=== PATIENT | male | born 1995 | race Caucasian/White ===

== ENCOUNTER 2016-04-08 12:48 | Emergency (ER) | payer OTHER ==
[2016-04-08 13:18] VITALS: BP 116/68; PULSE 85; RESP 16; TEMP 98.2; O2SAT 95
--- NOTE | 2016-04-08 14:17 | UCPHY ---
H & P Patient Type: Established Smoking Status: Heavy smoker Time Seen by Provider: 04/08/16 14:16 HPI/ROS: CHIEF COMPLAINT: Sores in mouth and on penis. HISTORY OF PRESENT ILLNESS: 5 days ago he had unprotected intercourse and oral sex with a new sexual partner. He has not checked with this individual as to whether they have any symptoms before or prior or concurrently. Beginning 3 days ago he started with a sore throat, white patches on the tonsil , anterior adenopathy, with some sense of fever. He was seen at a local clinic and found to have negative strep and influenza testing. In the interim he has developed some sores on his tongue as of yesterday. that he has never had before which she characterizes as canker sores. There have been oral sores since yesterday and sores on the tip of his penis since yesterday as well as 1 on the shaft of the penis, dorsal since earlier today he is not known to have any oral herpes labialis or genitalis. There were no lesions on his lips. Just the ones on the tip and the side of the time He has associated sore throat, tonsillar swelling, and fever. He has a history of tonsillitis but has never had these symptoms before. He denies change in urine color. He also notes he has had some small discrete fleshy areas in the pubic area that had been there for months. He has had prior evaluation and was told that these would should just not really bother him. REVIEW OF SYSTEMS: Constitutional: No fever, no chills. Eyes: No discharge. ENT: As above. Cardiovascular: No chest pain, no palpitations. Respiratory: No cough, no shortness of breath, no wheezing. Gastrointestinal: No nausea vomiting or diarrhea. No abdominal pain. Genitourinary: No hematuria or frequency. Musculoskeletal: No back pain. Skin: No rashes. Neurological: No headache. 10 point ROS otherwise negative (Tristen Gaxiola) Past Medical/Surgical History: Tonsillitis. (Tristen Gaxiola) Social History: Smoker. (Tristen Gaxiola) Physical Exam: General Appearance: Alert, no distress. Afebrile. Normal phonation. No respiratory distress. Anxious Eyes: Pupils equal and round no pallor or injection. No icterus ENT, Mouth: Scattered canker sores on side and tip of tongue. Mucous membranes moist. Pharynx erythematous and with exudate. Mild tonsillar swelling. TM Clear. Neck: Moderate anterior adenopathy. No posterior adenopathy. Supple. No JVD. Trachea in midline. Respiratory: There are no retractions, lungs are clear to auscultation. Cardiovascular: Regular rate and rhythm, without murmur. Abdomen: Soft and nontender, no masses, bowel sounds normal. No inguinal adenopathy Genitalia: Normal male hair pattern. He is status post circumcision. There are no scrotal masses or soft tissue swelling or tenderness. On the tip of the penis there are 3 discrete crusty spots compatible with acute herpes genitalis and 1 on the dorsum of the penis. There is no overt drainage or erythema or lymphangitis or cellulitis. There is no discharge to the penis. Further on the mons pubis there are some 6-7 discrete fleshy raised waxy looking beads approximately 3-4 mm, compatible with musculosum contagiosum. Neurological: Ox3. No motor weakness. Sensation intact. Gait nl. Skin: Warm and dry, no rashes. Musculoskeletal: No joint swelling. Extremities: No edema. Homans sign negative. No cords. Psychiatric: Patient is oriented X 3, there is no agitation (Tristen Gaxiola) Constitutional: Initial Vital Signs Temperature (C) 36.8 C 04/08/16 13:13 Heart Rate 85 04/08/16 13:13 Respiratory Rate 16 04/08/16 13:13 Blood Pressure 116/68 04/08/16 13:13 O2 Sat (%) 95 04/08/16 13:13 O2 Delivery Mode Room Air Allergies/Adverse Reactions: No Known Allergies Allergy (Verified 04/08/16 13:17) Home Medications: Medication Instructions Recorded Acyclovir 400 mg PO TID #30 tablet 04/08/16 Cephalexin [Keflex (*)] 500 mg PO TID #30 cap 04/08/16 oxyCODONE HCL/ACETAMINOPHEN 1 - 2 each PO Q6 PRN #20 tablet 04/08/16 [Percocet 5-325 mg Tablet] Hydrocodone/APAP 5/325 [[place] 1 - 2 tab PO Q4PRN PRN #20 tab 04/09/16 5/325 (*)] Medical Decision Making ED Course/Re-evaluation: This patient called on Sunday and did not like the way he felt on Percocet. I had him bring in his Percocet bottle in exchange for hydrocodone/Tylenol script (Kemar Blair) He is having quite a bit of throat pain and ask for something for pain. This made sense. This stigmata in his throat may well be herpes as well. Certainly the genital lesions are compatible with herpes. However he is only having adenopathy in the neck to suggest this might be the source of things rather than an acute primary herpes genitalis. As I have explained to him the uncertainty of the clinical correlation and pace of things, vis-a-vis he might well have had a secondary case this time, he is anxious to have HSV type being and surveillance to ascertain IgM verses IgM status as well as HSV 1 versus 2. Nonetheless as he has some muscullosum contagiosum so some on his suprapubic area he needs to have urologic referral as he is at risk for stress images to others. Likewise with his herpes genitalis. He has been admonished at length regarding use of condoms and self disclosure and and complete disclosure with transparent see to his current as well as future sexual partners. He does use condoms (Tristen Gaxiola) Differential Diagnosis: Diagnostic considerations include, but are not limited to, the following: Herpes simplex, Coxsackie, genital herpes, STDs, musculoskeletal contagiosum, Chlamydia, gonorrhea, syphilis exposure. 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 [phone] Referrals: NONE *PRIMARY CARE P,. [Primary Care Provider] - As per Instructions Prescriptions: Acyclovir 400 mg PO TID #30 tablet Cephalexin [Keflex (*)] 500 mg PO TID #30 cap Hydrocodone/APAP 5/325 [[place] 5/325 (*)] 1 - 2 tab PO Q4PRN PRN #20 tab PRN Reason: Pain oxyCODONE HCL/ACETAMINOPHEN [Percocet 5-325 mg Tablet] 1 - 2 each PO Q6 PRN #20 tablet PRN Reason: moderate pain - PQRS PQRS Measurement: Not applicable. (Tristen Gaxiola) Report Scribed for: Tristen Gaxiola Report Scribed by: Beka Toledo Date of Report: 04/08/16 Time of Report: 14:17 Physician Review and Approval Statement: 04/08/16 14:17 Portions of this note were transcribed by a medical care evaluation specialist. I personally performed a history, physical exam, medical decision making, and confirmed accuracy of information the transcribed note. (Tristen Gaxiola)
[2016-04-10 14:20] LABS: CHLAMYDIA AMPLIFICATION GENPRB NEGATIVE (NEGATIVE)
[2016-04-11 13:16] LABS: HSV1 IGG ANTIBODY Negative (Negative); HSV2 IGG ANTIBODY Negative (Negative)
[2016-04-12 08:11] LABS: HSV 1/2 IGM IFA Negative (Negative)
== END 2016-04-08 15:40 | disposition home or self-care (01) ==
LOC: CED 12:48
DX: K13.79 Other lesions of oral mucosa (principal); N48.5 Ulcer of penis; J02.9 Acute pharyngitis, unspecified
CPT/HCPCS: 86694-90; 99214-PO; G0463-PO

== ENCOUNTER 2016-04-25 17:20 | Emergency (ER) | payer OTHER ==
[2016-04-25 17:24] VITALS: TEMP 97.7
--- NOTE | 2016-04-25 17:27 | EDPHY ---
H & P Time Seen by Provider: 04/25/16 17:24 HPI/ROS: CHIEF COMPLAINT: Left abdominal pain HISTORY OF PRESENT ILLNESS: Patient tells me has a history of kidney stones. Previous history in [facility] reviewed by myself see past medical history for details. Patient developed left testicular pain this morning and then left lower quadrant abdominal pain 45 minutes ago. He says the pain is severe and not better worse with anything. It radiates into his groin. Associated with some nausea but no vomiting or diarrhea. No trauma. No urinary symptoms. REVIEW OF SYSTEMS: Eye: no change in vision ENT: no sore throat Cardiac: no chest pain or syncope Pulmonary: no cough or SOB Abdomen: HPI Musculoskeletal: no back pain Skin: no rash Neuro: no headache Constitutional: no fever : no urinary symptoms, no hematuria. A comprehensive 10 point review of systems is otherwise negative aside from elements mentioned in the history of present illness. PAST MEDICAL HISTORY: Previous visits in 2014 dated 08/07 and 11/03 personally reviewed by myself. Patient had testicular ultrasound, renal ultrasound, noncontrast CT which did show stones in the kidneys but no evidence of hydronephrosis or ureteral colic. Social history: Tobacco smoker General Appearance: Alert and conversant, cooperative. Eyes: No scleral icterus. ENT, Mouth: Normal mucous membranes. Respiratory: Normal respiratory effort, breath sounds equal, lungs are clear to auscultation. Cardiovascular: Regular rate and rhythm. Gastrointestinal: Abdomen is soft and non tender. Normal testicles with vertical lie, no swelling or tenderness, no skin discoloration. Not tender to palpation. Neurological: Alert and oriented x3. Normally conversant. Face symmetric, normal movement and sensation in all extremities. Skin: Warm and dry, no rashes. Musculoskeletal: No peripheral edema and no joint swelling. Psychiatric: Moderately anxious. Emergency Department course/MDM: 15 mg IV Toradol and 4 mg IV Zofran. Urinalysis and retroperitoneal ultrasound. 183: Ultrasound reviewed with [place] shows left hydronephrosis, patient examined at this time and is more comfortable. 1854: No pain now. Plan to discharge if urinalysis does not show infection. Testicular symptoms most likely due to renal colic. 1924: Urine dip positive for blood but not for infection. Referred to [facility] on discharge. Smoking Status: Heavy smoker Constitutional: Initial Vital Signs Temperature (C) 36.5 C 04/25/16 17:20 Heart Rate 94 04/25/16 17:20 Respiratory Rate 20 04/25/16 17:20 Blood Pressure 121/80 H 04/25/16 17:20 O2 Sat (%) 100 04/25/16 17:20 O2 Delivery Mode Room Air Allergies/Adverse Reactions: No Known Allergies Allergy (Verified 04/08/16 13:17) Home Medications: Medication Instructions Recorded Acyclovir 400 mg PO TID #30 tablet 04/08/16 Cephalexin [Keflex (*)] 500 mg PO TID #30 cap 04/08/16 oxyCODONE HCL/ACETAMINOPHEN 1 - 2 each PO Q6 PRN #20 tablet 04/08/16 [Percocet 5-325 mg Tablet] Hydrocodone/APAP 5/325 [[place] 1 - 2 tab PO Q4PRN PRN #20 tab 04/09/16 5/325 (*)] Hydrocodone/APAP 5/325 [[place] 1 - 2 tab PO Q4-6PRN PRN #11 tab 04/25/16 5/325] Medical Decision Making Differential Diagnosis: Differential considered including but not limited to diverticulitis, testicular torsion, UTI, renal colic. - Data Points Laboratory Results: 04/25/16 17:32 POC Hgb 16.0 gm/dL gm/dL (14.5-17.3) POC Hct 47 % % (42.8-50.6) POC Sodium 145 mEq/L H mEq/L (134-144) POC Potassium 3.5 mEq/L mEq/L (3.3-5.0) POC Chloride 103 mEq/L mEq/L (96-108) POC BUN 10 mg/dL mg/dL (7-23) POC Creatinine 0.9 mg/dL mg/dL (0.8-1.5) POC Glucose 68 mg/dL L mg/dL (70-100) Medications Given: Discontinued Medications Acetaminophen (Tylenol) 650 mg PO EDNOW ONE Stop: 04/25/16 18:31 Last Admin: 04/25/16 18:40 Dose: 650 mg Sodium Chloride (Ns) 1,000 mls @ 0 mls/hr IV ONCE ONE PRN Reason: Wide Open Stop: 04/25/16 17:38 Last Admin: 04/25/16 17:51 Dose: 1,000 mls Ketorolac Tromethamine (Toradol) 15 mg IVP EDNOW ONE Stop: 04/25/16 17:38 Last Admin: 04/25/16 17:55 Dose: 15 mg Ketorolac Tromethamine (Toradol) 15 mg IVP EDNOW ONE Stop: 04/25/16 18:31 Last Admin: 04/25/16 18:40 Dose: 15 mg Ondansetron HCl (Zofran) 4 mg IVP EDNOW ONE Stop: 04/25/16 17:38 Last Admin: 04/25/16 17:56 Dose: 4 mg Point of Care Test Results: 04/25/16 17:32 POC Sodium 145 H POC Potassium 3.5 POC Chloride 103 POC BUN 10 POC Creatinine 0.9 POC Glucose 68 L Departure - Departure Disposition: Home, Routine, Self-Care Clinical Impression: Renal colic on left side Condition: Good Instructions: Renal Colic (ED) Additional Instructions: Oral ibuprofen 600 mg every 6 hours as needed for the next 5 days for pain. Vicodin for breakthrough pain. Strain urine and bring any stone to your primary care physician for analysis. Referrals: DOMONIQUE SAUCEDO [Other] - As per Instructions Abad Gutierrez MD [Medical Doctor] - As per Instructions (urology referral) Prescriptions: Hydrocodone/APAP 5/325 [[place] 5/325] 1 - 2 tab PO Q4-6PRN PRN #11 tab PRN Reason: For Pain
[2016-04-25] MEDS ORDERED: NS 1,000 ML IV ONE (17:37)
[2016-04-25] MEDS ORDERED: KETOROLAC 30 MG/1 ML SDV IVP ONE ×2 (17:37→18:30)
[2016-04-25] MEDS ORDERED: ONDANSETRON 4 MG/2 ML VIAL IVP ONE (17:37)
[2016-04-25] MEDS ORDERED: ACETAMINOPHEN 325 MG TAB PO ONE (18:30)
[2016-04-25 19:26] VITALS: BP 118/52; PULSE 68; RESP 18; O2SAT 97
== END 2016-04-25 19:26 | disposition home or self-care (01) ==
DX: N23 Unspecified renal colic (principal); F17.200 Nicotine dependence, unspecified, uncomplicated
CPT/HCPCS: 82947-QW; 96374; J1885; J2405

== ENCOUNTER 2016-05-05 18:40 | Emergency (ER) | payer OTHER ==
[2016-05-05 19:06] VITALS: TEMP 98.1
[2016-05-05] MEDS ORDERED: HYDROCOD/APAP 5/325 PREPACK#6 BTL TAKEHOME ONE (20:02)
--- NOTE | 2016-05-05 20:05 | EDPHY ---
H & P Time Seen by Provider: 05/05/16 19:29 HPI/ROS: CHIEF COMPLAINT: Left flank pain HISTORY OF PRESENT ILLNESS: 20-year-old male with a history of kidney stones presents with left flank pain. He was seen in this ED on 04/25/2016 and diagnosed with left renal colic. Renal ultrasound revealed mild left hydronephrosis. He was discharged home on Vicodin. He was feeling better until just prior to arrival when he developed moderate waxing and waning left flank pain. The pain is now almost completely resolved. No vomiting, fever or dysuria. REVIEW OF SYSTEMS: Constitutional: No fever, no chills Eyes: No visual changes ENT: No sore throat Respiratory: No cough, no shortness of breath Cardiac: No chest pain Gastrointestinal: No nausea, no vomiting, no abdominal pain Genitourinary: No hematuria, no dysuria Musculoskeletal: No leg pain or swelling Skin: No rash Neurological: No headache, no weakness Psychiatric: No depression Past Medical/Surgical History: Kidney stones Social History: No PCP Smoking Status: Heavy smoker Physical Exam: General Appearance: Alert, does not appear in pain Eyes: Pupils equal and round, no conjunctival pallor ENT, Mouth: Mucous membranes moist Neck: Normal inspection Respiratory: normal respiratory rate Cardiovascular: Regular rate and rhythm Gastrointestinal: Abdomen is soft and nontender Neurological: A&O, nonfocal, normal gait Skin: Warm and dry Extremities: normal inspection Psychiatric: Mood and affect normal Constitutional: Initial Vital Signs Temperature (C) 36.7 C 05/05/16 19:05 Heart Rate 84 05/05/16 19:05 Respiratory Rate 20 05/05/16 19:05 Blood Pressure 95/77 L 05/05/16 19:05 O2 Sat (%) 98 05/05/16 19:05 O2 Delivery Mode Room Air Allergies/Adverse Reactions: No Known Allergies Allergy (Verified 05/05/16 19:04) Home Medications: Medication Instructions Recorded Hydrocodone/APAP 5/325 [[place] 1 - 2 tab PO Q4H PRN #10 tab 05/05/16 5/325] Medical Decision Making ED Course/Re-evaluation: Dip urinalysis positive for blood. Pt previously referred to Urology, states will f/u as suggested. Given multiple prior kidney stones, and feels better now , I decided on no repeat imaging. Abd remains soft/NT. Differential Diagnosis: Differential diagnosis includes though it is not limited to appendicitis, cholecystitis, diverticulitis, pyelonephritis, bowel perforation, small bowel obstruction. - Data Points Medications Given: Discontinued Medications Hydrocodone Bitart/Acetaminophen ([place] 5/325mg Prepack#6) 1 btl TAKEHOME EDNOW ONE Stop: 05/05/16 20:03 Last Admin: 05/05/16 20:24 Dose: 1 btl Departure - Departure Disposition: Home, Routine, Self-Care Clinical Impression: Renal colic on left side Condition: Good Instructions: Hydrocodone/Acetaminophen (By mouth), Renal Colic (ED) Additional Instructions: Ibuprofen 600 mg 3 times daily while the pain persists. Take Vicodin 1 tablet orally every 4 hours as needed for pain. Referrals: Majo Brewster MD [Primary Care Provider] - As per Instructions Tanvir Mancini MD [Medical Doctor] - As per Instructions (Call for an appointment.) Prescriptions: Hydrocodone/APAP 5/325 [[place] 5/325] 1 - 2 tab PO Q4H PRN #10 tab PRN Reason: Pain, Moderate
[2016-05-05 20:26] VITALS: BP 136/70; PULSE 88; RESP 18; O2SAT 96
== END 2016-05-05 20:15 | disposition home or self-care (01) ==
DX: N23 Unspecified renal colic (principal); F17.200 Nicotine dependence, unspecified, uncomplicated

== ENCOUNTER → 2016-05-13 | Outpatient (CLI) | payer OTHER | LOC: FIMAGING 15:06 | PROVIDERS: ATTEND Family Medicine | DX: N20.1 Calculus of ureter (principal); N13.39 Other hydronephrosis; K80.20 Calculus of gallbladder without cholecystitis without obstruction ==

== ENCOUNTER → 2016-05-13 | Outpatient (CLI) | payer OTHER | LOC: BMCIMAGING 13:28 | PROVIDERS: ATTEND Family Medicine | DX: M61.48 Other calcification of muscle, other site (principal) ==

== ENCOUNTER 2016-05-14 04:28 | Emergency (ER) | payer OTHER ==
[2016-05-14] MEDS ORDERED: ONDANSETRON 4 MG/2 ML VIAL ONE (05:07)
[2016-05-14] MEDS: NS 1,000 ML IV ONE (05:16)
[2016-05-14] MEDS: ONDANSETRON 4 MG/2 ML VIAL IVP ONE (05:16)
[2016-05-14 05:31] LABS: % IMMATURE GRANULYOCYTES 0.3 % (0.0-1.1); ABSOLUTE IMMATURE GRANULOCYTES 0.04 10^3/uL (0.00-0.10); ADD DIFF? NO; ADD MORPH? NO; ADD SCAN? NO; ATYPICAL LYMPHOCYTE FLAG 10 (0-99); FRAGMENT RBC FLAG 0 (0-99); HEMATOCRIT 41.3 % (40.0-51.0); HEMOGLOBIN 14.4 g/dL (13.7-17.5); LEFT SHIFT FLG 0 (0-99); LIPEMIA HEMOLYSIS FLAG 90 (0-99); MEAN CELL HEMOGLOBIN 31.5 pg (27.9-34.1); MEAN CELL HEMOGLOBIN CONCENTR. 34.9 g/dL (32.4-36.7); MEAN CELL VOLUME 90.4 fL (81.5-99.8); MEAN PLATELET VOLUME 9.8 fL (8.7-11.7); PLATELET CLUMPS FLAG 10 (0-99); PLATELET COUNT 198 10^3/uL (150-400); RED BLOOD CELL COUNT 4.57 10^6/uL (4.40-6.38); RED CELL DISTRIBUTION WIDTH 12.3 % (11.5-15.2)
[2016-05-14] MEDS ORDERED: NS 50 ML BAG IV ONE (05:31)
[2016-05-14] MEDS: FAMOTIDINE 20 MG/2 ML SDV IVP ONE (05:35)
[2016-05-14] MEDS ORDERED: HYDROCODONE/APAP 5/325 TAB ONE (05:38)
[2016-05-14 05:40] LABS: ALANINE AMINOTRANSFERASE 21 IU/L (21-72); ALBUMIN 3.8 g/dL (3.5-5.0); ALKALINE PHOSPHATASE 57 IU/L (38-126); ANION GAP 10 mEq/L (8-16); ASPARTATE AMINOTRANSFERASE 27 IU/L (17-59); BILIRUBIN,TOTAL 1.3 mg/dL (0.1-1.4); CARBON DIOXIDE 25 mEq/l (22-31); CHLORIDE 108 mEq/L (97-110); CREATININE 1.4 mg/dL (0.7-1.3); GLOMERULAR FILTRATION RATE > 60; GLUCOSE 91 mg/dL (70-100); POTASSIUM 3.6 mEq/L (3.5-5.2); SODIUM 143 mEq/L (134-144)
[2016-05-14] MEDS: HYDROCODONE/APAP 5/325 TAB PO ONE (05:41)
--- NOTE | 2016-05-14 05:41 | EDPHY ---
H & P Stated Complaint: c/o n/v x 20 mins, pt says blood in vomit Time Seen by Provider: 05/14/16 05:01 HPI/ROS: HPI The patient presents with nausea, vomiting which awoke him from sleep about 1 hour prior to presentation. He noticed that his vomiting was somewhat dark in coloration and continued to get progressively dark. There is no bright red blood. He had several episodes and then woke his friend to bring him into the emergency room. He does have associated mild to moderate epigastric pain which is achy in nature. He says he has a history of GERD. He is currently being treated for a kidney stone and had a CT scan performed yesterday which showed a left-sided stone in the UVJ with hydronephrosis. He has not had much vomiting until today. He has an appointment with a urologist in 3 days. He is not taking any NSAIDs and denies alcohol use.. REVIEW OF SYSTEMS Constitutional: No fever, no chills. Eyes: No discharge. ENT: No sore throat. Cardiovascular: No chest pain, no palpitations. Respiratory: No cough, no shortness of breath. Gastrointestinal: See HPI Genitourinary: No hematuria. Musculoskeletal: No back pain. Skin: No rashes. Neurological: No headache. PMHx: Left-sided kidney stone Soc Hx: Housed, denies alcohol use PHYSICAL General Appearance: Alert, no distress Eyes: Pupils equal and round no pallor or injection ENT, Mouth: Mucous membranes moist Respiratory: There are no retractions, lungs are clear to auscultation Cardiovascular: Regular rate and rhythm Gastrointestinal: Abdomen is soft with mild epigastric tenderness Neurological: A&O, moves all extremities Skin: Warm and dry, no rashes Musculoskeletal: Neck is supple non tender Extremities: symmetrical, full range of motion Psychiatric: Patient is oriented X 3, there is no agitation Source: Patient - Personal History Tetanus Vaccine Date: within 10 years - Medical/Surgical History Hx Asthma: No Hx Chronic Respiratory Disease: No Hx Diabetes: No Hx Cardiac Disease: No Hx Renal Disease: No Hx Cirrhosis: No Hx Alcoholism: No Hx HIV/AIDS: No Hx Splenectomy or Spleen Trauma: No Other PMH: Kidney stones, pneumonia age 2, anxiety, varicose vein surg - Social History Smoking Status: Heavy smoker Constitutional: Initial Vital Signs Temperature (C) 36.9 C 05/14/16 04:31 Heart Rate 71 05/14/16 04:31 Respiratory Rate 16 05/14/16 04:31 Blood Pressure 109/72 05/14/16 04:31 O2 Sat (%) 100 05/14/16 04:31 O2 Delivery Mode Room Air Allergies/Adverse Reactions: No Known Allergies Allergy (Verified 05/14/16 04:33) Home Medications: Medication Instructions Recorded Hydrocodone/APAP 5/325 [[place] 1 - 2 tab PO Q4H PRN #10 tab 05/05/16 5/325] Medical Decision Making Differential Diagnosis: This is a 20-year-old male who is currently being treated for nephrolithiasis, had a CT scan done today, who presents with vomiting which is dark in color, concerning for bleeding associated epigastric abdominal pain. He denies any dark or bloody stools. On exam, he has normal vital signs, he is tender in his epigastrium. Differential diagnosis includes Taylor-Figueroa tear, stress gastritis, NSAID induced gastritis, less likely ulcer or esophageal varices. In the emergency room, basic labs were checked and his white blood cell count was elevated, I attribute this to his vomiting. His creatinine was slightly elevated at 1.4 though I do not have a recent for comparison this is likely slightly elevated related to his kidney stone. He was given IV fluid hydration for his vomiting as well as Zofran and Pepcid. He had no ongoing vomiting here in the emergency room and was observed for several hours. He felt better and was discharged home. I feel he likely has a stress gastritis and I have explained this to him. He will be discharged with follow-up with Urology for his kidney stone in the next few days. - Data Points Laboratory Results: Laboratory Results 05/14/16 05:05 05/14/16 05:05 05/14/16 05/14/16 05:05 05:05 WBC 11.82 10^3/uL H 10^3/uL (3.80-9.50) RBC 4.57 10^6/uL 10^6/uL (4.40-6.38) Hgb 14.4 g/dL g/dL (13.7-17.5) Hct 41.3 % % (40.0-51.0) MCV 90.4 fL fL (81.5-99.8) MCH 31.5 pg pg (27.9-34.1) MCHC 34.9 g/dL g/dL (32.4-36.7) RDW 12.3 % % (11.5-15.2) Plt Count 198 10^3/uL 10^3/uL (150-400) MPV 9.8 fL fL (8.7-11.7) Neut % (Auto) 67.6 % % (39.3-74.2) Lymph % (Auto) 21.8 % % (15.0-45.0) Kleberg % (Auto) 9.1 % % (4.5-13.0) Eos % (Auto) 0.8 % % (0.6-7.6) Baso % (Auto) 0.4 % % (0.3-1.7) Nucleat RBC Rel Count 0.0 % % (0.0-0.2) Absolute Neuts (auto) 7.99 10^3/uL H 10^3/uL (1.70-6.50) Absolute Lymphs (auto) 2.58 10^3/uL 10^3/uL (1.00-3.00) Absolute Monos (auto) 1.07 10^3/uL H 10^3/uL (0.30-0.80) Absolute Eos (auto) 0.09 10^3/uL 10^3/uL (0.03-0.40) Absolute Basos (auto) 0.05 10^3/uL 10^3/uL (0.02-0.10) Absolute Nucleated RBC 0.00 10^3/uL 10^3/uL (0-0.01) Immature Gran % 0.3 % % (0.0-1.1) Immature Gran # 0.04 10^3/uL 10^3/uL (0.00-0.10) Sodium 143 mEq/L mEq/L (134-144) Potassium 3.6 mEq/L mEq/L (3.5-5.2) Chloride 108 mEq/L mEq/L (97-110) Carbon Dioxide 25 mEq/l mEq/l (22-31) Anion Gap 10 mEq/L mEq/L (8-16) BUN 14 mg/dL mg/dL (7-23) Creatinine 1.4 mg/dL H mg/dL (0.7-1.3) Estimated GFR > 60 Glucose 91 mg/dL mg/dL (70-100) Calcium 9.0 mg/dL mg/dL (8.5-10.4) Total Bilirubin 1.3 mg/dL mg/dL (0.1-1.4) AST 27 IU/L IU/L (17-59) ALT 21 IU/L IU/L (21-72) Alkaline Phosphatase 57 IU/L IU/L (38-126) Total Protein 6.0 g/dL L g/dL (6.3-8.2) Albumin 3.8 g/dL g/dL (3.5-5.0) Medications Given: Discontinued Medications Hydrocodone Bitart/Acetaminophen ([place] 5/325) 1 tab PO EDNOW ONE Stop: 05/14/16 05:42 Last Admin: 05/14/16 05:41 Dose: 1 tab Famotidine (Pepcid) 20 mg IVP EDNOW ONE Stop: 05/14/16 05:27 Last Admin: 05/14/16 05:35 Dose: 20 mg Sodium Chloride (Ns) 1,000 mls @ 0 mls/hr IV ONCE ONE PRN Reason: Wide Open Stop: 05/14/16 05:17 Last Admin: 05/14/16 05:16 Dose: 1,000 mls Ondansetron HCl (Zofran) 4 mg IVP EDNOW ONE Stop: 05/14/16 05:17 Last Admin: 05/14/16 05:16 Dose: 4 mg Departure - Departure Disposition: Home, Routine, Self-Care Clinical Impression: Kidney stone on left side Hematemesis Qualifiers: Nausea presence: with nausea Qualified Code(s): K92.0 - Hematemesis; R11.0 - Nausea Condition: Good Instructions: Hematemesis (ED) Additional Instructions: You can take Pepcid or Tums if you continue to have any stomach pain. You can take the anti nausea medication if you have any vomiting. He should return to the emergency room if your worse in any way. Referrals: Majo Brewster MD [Primary Care Provider] - As per Instructions
[2016-05-14 06:44] VITALS: BP 120/72; PULSE 81; RESP 20; TEMP 98.2; O2SAT 93
== END 2016-05-14 06:45 | disposition home or self-care (01) ==
DX: N20.0 Calculus of kidney (principal); K92.0 Hematemesis; F17.200 Nicotine dependence, unspecified, uncomplicated
CPT/HCPCS: 96374; J2405

== ENCOUNTER → 2016-07-08 | Outpatient (CLI) | payer OTHER | LOC: BMCIMAGING 16:54 | PROVIDERS: ATTEND Family Medicine | DX: M79.672 Pain in left foot (principal) ==

== ENCOUNTER 2016-08-17 20:22 | Emergency (ER) | payer OTHER ==
[2016-08-17 20:29] VITALS: RESP 18; TEMP 97.2; O2SAT 98
--- NOTE | 2016-08-17 22:16 | EDPHY ---
H & P Stated Complaint: pt wants script for anxiety meds Time Seen by Provider: 08/17/16 21:59 HPI/ROS: Chief Complaint: Anxiety HPI: 20-year-old male presenting complaining of feeling anxious. Patient has a history of PTSD. He states that he has never been treated for this formally. He was seen at urgent care for 2 months ago and given Xanax without help. He has been department in 2 days but has not been able to sleep for the last 2 nights and feels he needs something to help with this. Denies any suicidal ideation. No homicidal ideation. Is feeling mildly paranoid but has not have any specific thoughts regarding anybody in particular out to get him. He has not have any ideas of specific pressure confusion. He is not hallucinating. He denies drinking alcohol or using any other recreational drugs. He has been seen at [facility] but did not return because they did not call him back. He is requesting something to help him relax. ROS: 10 point Review of Systems is negative except as noted in the HPI. PMH: Anxiety and depression Medications: None Allergies: No known drug allergies Social History: Positive smoking, rare alcohol, no recreational drug use Family History: non-contributory Physical Exam: Gen: Awake, Alert, No Distress HEENT: Nose: no rhinorrhea Eyes: PERRLA, EOMI Mouth: Moist mucosa Neck: Supple, no JVD Chest: nontender, lungs clear to auscultation Heart: S1, S2 normal, no murmur Abd: Soft, non-tender, no guarding Back: no CVA tenderness, no midline tenderness Ext: no edema, non-tender Skin: no rash Neuro: CN II-XII intact, Sensation grossly intact, Strength 5/5 in bilateral upper and lower extremities - Personal History Current Tetanus/Diphtheria Vaccine: No Current Tetanus Diphtheria and Acellular Pertussis (TDAP): No Tetanus Vaccine Date: within 10 years - Medical/Surgical History Hx Asthma: No Hx Chronic Respiratory Disease: No Hx Diabetes: No Hx Cardiac Disease: No Hx Renal Disease: No Hx Cirrhosis: No Hx Alcoholism: No Hx HIV/AIDS: No Hx Splenectomy or Spleen Trauma: No Other PMH: Kidney stones, pneumonia age 2, anxiety, varicose vein surg - Social History Smoking Status: Heavy smoker Constitutional: Initial Vital Signs Temperature (C) 36.2 C 08/17/16 20:25 Heart Rate 80 08/17/16 20:25 Respiratory Rate 18 08/17/16 20:25 Blood Pressure 121/66 H 08/17/16 20:25 O2 Sat (%) 98 08/17/16 20:25 O2 Delivery Mode Room Air Allergies/Adverse Reactions: No Known Allergies Allergy (Verified 05/14/16 04:33) Home Medications: Medication Instructions Recorded NK [No Known Home Meds] 08/17/16 Medical Decision Making ED Course/Re-evaluation: 20-year-old male who is presenting complaining of anxiety looking for prescription for something to help him relax. He is leaving town in 2 days. He is very concerning situation. I have informed him that I am not going to give him a prescription for any medications at this time specially something to treat anxiety or depression. I will give him a couple of Ativan to go home with to help him for the next day or 2. He will otherwise follow up with [facility] or follow up when he returns arise apartment in 2 days. Departure - Departure Disposition: Home, Routine, Self-Care Clinical Impression: Anxiety Condition: Good Instructions: Anxiety (ED) Additional Instructions: Follow up with [facility] in 1-2 days for re-evaluation. Return emergency depart for thoughts of suicide or homicide, hallucinations, worsening anxiety depression, or any other concerns. Referrals: Majo Brewster MD [Primary Care Provider] - As per Instructions
[2016-08-17] MEDS ORDERED: LORAZEPAM 1 MG PREPACK#4 BTL TAKEHOME ONE (22:19)
[2016-08-17 22:31] VITALS: BP 162/67; PULSE 74
== END 2016-08-17 22:31 | disposition home or self-care (01) ==
DX: F41.9 Anxiety disorder, unspecified (principal); F17.200 Nicotine dependence, unspecified, uncomplicated